=== PATIENT | female | born 1975 | race African-American/Black ===

== ENCOUNTER 2021-01-25 08:38 | Outpatient (CLI) | payer BC | END 2021-01-25 08:39 | disposition home or self-care (01) | LOC: BICMAMMO 08:38 | PROVIDERS: ATTEND Family Medicine | DX: Z12.31 Encounter for screening mammogram for malignant neoplasm of breast (principal); N64.89 Other specified disorders of breast; Z80.3 Family history of malignant neoplasm of breast | CPT/HCPCS: 77063; 77067 ==

== ENCOUNTER 2021-02-01 08:55 | Outpatient (CLI) | payer BC | END 2021-02-01 08:56 | disposition home or self-care (01) | LOC: BICMAMMO 08:55 | PROVIDERS: ATTEND Family Medicine | DX: R92.1 Mammographic calcification found on diagnostic imaging of breast (principal) | CPT/HCPCS: G0279 ==

== ENCOUNTER 2023-01-24 08:13 | Outpatient (CLI) | payer BC | END 2023-01-24 08:14 | disposition home or self-care (01) | LOC: RAD 08:13 | PROVIDERS: ATTEND Nurse Practitioner Family | DX: R05.8 Other specified cough (principal) | CPT/HCPCS: 71046 ==

== ENCOUNTER 2024-01-23 12:41 | Outpatient (CLI) | payer BC | END 2024-01-23 12:42 | disposition home or self-care (01) | LOC: BICMAMMO 12:41 | PROVIDERS: ATTEND Family Medicine | DX: Z12.31 Encounter for screening mammogram for malignant neoplasm of breast (principal); Z80.3 Family history of malignant neoplasm of breast | CPT/HCPCS: 77063; 77067 ==